=== PATIENT | female | born 1950 | race Caucasian/White ===

== ENCOUNTER 2016-08-04 18:39 | Emergency (ER) | payer MEDICARE ==
[~2016-08-04] VITALS: Ht 162.6 cm; Wt 91.4 kg
[2016-08-04] MEDS ORDERED: MORPHINE SULFATE 4 MG/ML, 1ML IVPush PRN (19:30)
[2016-08-04] MEDS ORDERED: SODIUM CHLORIDE FLUSH 10ML SYR IVF ONE (19:30)
[2016-08-04] MEDS ORDERED: SODIUM CHLORIDE 0.9% 1,000ML IVBOLUS ONE (19:30)
[2016-08-04 19:40] LABS: ASPARTATE AMINO TRANSFERASE 19 U/L (15-37); BLOOD UREA NITROGEN 15 mg/dL (7-18)
[2016-08-04] MEDS ORDERED: ALLERGY MED PO (19:43)
[2016-08-04] MEDS ORDERED: APIX2.5T PO (19:43)
[2016-08-04 19:45] LABS: IS PT STATUS REG ER OR PRE ER? YES
[2016-08-04] MEDS ORDERED: OMNIPAQUE 350 MG/ML, 100ML BOTTLE ONE (21:10)
[2016-08-04 21:33] VITALS: BP 134/72
== END 2016-08-04 21:35 | disposition home or self-care (01) ==
LOC: ED 20:20
DX: R06.00 Dyspnea, unspecified (principal); R05 Cough; K21.9 Gastro-esophageal reflux disease without esophagitis; K44.9 Diaphragmatic hernia without obstruction or gangrene; E11.9 Type 2 diabetes mellitus without complications; I10 Essential (primary) hypertension; Z90.710 Acquired absence of both cervix and uterus
CPT/HCPCS: 36415; 71275; 80053; 83880; 84484; 85025; 85610; 85730; 93005; 99285; J7030; Q9967